=== PATIENT | female | born 1940 | race Caucasian/White ===

== ENCOUNTER → 2017-08-16 | Outpatient (CLI) | payer OTHER ==
--- NOTE | 2017-08-17 09:02 | RSPPFT ---
DATE OF PROCEDURE: 08/16/17 COMMENTS: Spirometry shows FVC of 2.0 at 83% of predicted, FEV1 of 0.8 at 44%, FEV1/FVC ratio is decreased. Flow is decreased at FEF 25, FEF 50, FEF 75 and FEF 25-75. There is no significant response after acutely inhaled bronchodilator treatment. Lung volumes show residual volume is normal. TLC is normal. Diffusion capacity is mildly decreased. Flow volume loop indicates an obstructive pattern. IMPRESSION: 1. Moderately severe obstructive lung disease. 2. No response after bronchodilator treatment. 3. Normal lung volumes. 4. Mildly decreased diffusion capacity.
== END ==
LOC: PHRSP 10:16 → EDBD 10:16
PROVIDERS: ATTEND Specialist
DX: J44.9 Chronic obstructive pulmonary disease, unspecified (principal)
CPT/HCPCS: 94060; 94729